=== PATIENT | female | born 1955 | race Caucasian/White ===

== ENCOUNTER 2022-05-24 01:51 | Day surgery (SDC) | payer MEDICARE, OTHER ==
[~2022-05-24 01:51] MED LIST: Fibercon625 MG PO; LEVSOD100 PO; Prilosec Otc20 MG; RANI150 PO; SOLI5
[2022-05-24] MEDS ORDERED: IRBE150 PO (07:57)
== END 2022-05-24 08:58 | disposition home or self-care (01) ==
LOC: ATC 01:51
DX: E86.0 Dehydration (principal); C09.1 Malignant neoplasm of tonsillar pillar (anterior) (posterior)
CPT/HCPCS: 96360; J7030

== ENCOUNTER 2022-05-27 02:12 | Day surgery (SDC) | payer MEDICARE, OTHER ==
[~2022-05-27 02:12] MED LIST changes: +IRBE150 PO
[2022-05-27] MEDS ORDERED: SYNTHROID125 MC1 PO (08:14)
== END 2022-05-27 08:53 | disposition home or self-care (01) ==
LOC: ATC 02:12
DX: E86.0 Dehydration (principal)
CPT/HCPCS: 96360; J7030

== ENCOUNTER 2022-06-07 04:10 | Day surgery (SDC) | payer MEDICARE, OTHER ==
[~2022-06-07 04:10] MED LIST changes: +SYNTHROID125 MC1 PO
== END 2022-06-07 09:30 | disposition home or self-care (01) ==
LOC: ATC 04:10
DX: E86.0 Dehydration (principal); C09.1 Malignant neoplasm of tonsillar pillar (anterior) (posterior)
CPT/HCPCS: J7030

== ENCOUNTER 2022-06-10 00:12 | Day surgery (SDC) | payer MEDICARE, OTHER | END 2022-06-10 09:30 | disposition home or self-care (01) | LOC: ATC 00:12 | DX: E86.0 Dehydration (principal); C09.1 Malignant neoplasm of tonsillar pillar (anterior) (posterior) | CPT/HCPCS: J7030 ==

== ENCOUNTER 2022-06-14 02:21 | Day surgery (SDC) | payer MEDICARE, OTHER | END 2022-06-14 10:09 | disposition home or self-care (01) | LOC: ATC 02:21 | DX: E86.0 Dehydration (principal); C09.1 Malignant neoplasm of tonsillar pillar (anterior) (posterior) | CPT/HCPCS: J7030 ==

== ENCOUNTER 2022-08-07 09:13 | Day surgery (SDC) | payer MEDICARE, OTHER ==
[~2022-08-07] VITALS: Ht 160 cm; Wt 56.3 kg
== END 2022-08-07 11:40 | disposition home or self-care (01) ==
LOC: ORSCSDS 09:13
PROVIDERS: Internal Medicine Gastroenterology
PROC: 0DJD8ZZ Inspection of Lower Intestinal Tract, Via Natural or Artificial Opening Endoscopic (ICD-10-PCS; principal; 2022-08-07 10:30)
DX: Z12.11 Encounter for screening for malignant neoplasm of colon (principal); Z86.010 Personal history of colon polyps; K57.30 Diverticulosis of large intestine without perforation or abscess without bleeding; Z79.899 Other long term (current) drug therapy
CPT/HCPCS: J2704; J7120

== ENCOUNTER 2025-03-27 10:46 | Emergency (ER) | payer MEDICARE ==
[~2025-03-27] VITALS: Ht 160 cm; Wt 68.0 kg
[2025-03-27 10:52] VITALS: BP 133/81
[2025-03-27 11:13] LABS: Calcium, Ionized (POC) 1.22 mmol/L (1.10-1.46); Chloride (POC) 105 mmol/L (98-108); Creatinine (POC) 0.9 mg/dL (0.6-1.0); Glucose (ISTAT POC) 103 mg/dL (70-99); Hematocrit (POC) 31.0 % (36.0-46.0); Hemoglobin (POC) 10.5 g/dL (12.0-16.0); Potassium (POC) 3.9 mmol/L (3.5-5.5); Sodium (POC) 142 mmol/L (135-148); Total CO2 (POC) 23 mmol/L (21-32)
== END 2025-03-27 12:37 | disposition home or self-care (01) ==
LOC: ER 10:46
PROVIDERS: Emergency Medicine
DX: R55 Syncope and collapse (principal); Z52.000 Unspecified donor, whole blood; Z79.899 Other long term (current) drug therapy; Z90.710 Acquired absence of both cervix and uterus
CPT/HCPCS: 80047; 85014; 93005; 93010; 99284-25

== ENCOUNTER 2025-06-22 08:15 | Day surgery (SDC) | payer MEDICARE ==
[~2025-06-22] VITALS: Ht 165.1 cm; Wt 64.4 kg
[~2025-06-22 08:15] MED LIST changes: +NS 500 ML IV ONE
[2025-06-22] MEDS ORDERED: OXYB5 PO (08:48)
[2025-06-22] MEDS ORDERED: EUTHYROX88 MCG PO (08:48)
[2025-06-22] MEDS ORDERED: Aspir 8181 MG PO (08:49)
[2025-06-22] MEDS ORDERED: VITAMIN D325 MC3 PO (08:50)
[2025-06-22] MEDS ORDERED: NS 500 ML IV ONE (08:58)
--- NOTE | 2025-06-22 08:59 | NUR ---
06/22/25 [address] DR POWELL, INJECTIONS WILL BE DONE IN [place]
[2025-06-22] MEDS ORDERED: FentaNYL Citrate 50 MCG/ML 2 ML Injection ONE (09:05)
[2025-06-22] MEDS ORDERED: CeFAZolin Sodium 2,000 MG VIAL ONE (09:08)
[2025-06-22 09:52] VITALS: BP 116/79
== END 2025-06-22 10:17 | disposition home or self-care (01) ==
LOC: ORSCSDS 08:15
PROVIDERS: Orthopaedic Surgery
PROC: 0LN80ZZ Release Left Hand Tendon, Open Approach (ICD-10-PCS; principal; 2025-06-22 10:00)
DX: M65.322 Trigger finger, left index finger (principal); M65.332 Trigger finger, left middle finger; M65.342 Trigger finger, left ring finger; M65.352 Trigger finger, left little finger; G56.01 Carpal tunnel syndrome, right upper limb; Z85.850 Personal history of malignant neoplasm of thyroid; Z79.82 Long term (current) use of aspirin; Z79.899 Other long term (current) drug therapy
CPT/HCPCS: J0690; J2704; J3010; J7040